=== PATIENT | male | born 1950 | race Caucasian/White ===

== ENCOUNTER 2020-10-26 19:23 | Inpatient (IN) | payer BC, OTHER ==
[2020-10-26] MEDS ORDERED: SODIUM CHLORIDE 2,041 ML IV ONE (19:45)
[2020-10-26] MEDS ORDERED: ACETAMINOPHEN 1000 MG/100 ML VIAL (NON FORMULARY) IVPB ONE (21:23)
[2020-10-26] MEDS ORDERED: ACETAMINOPHEN INJECTION 100 ML IVPB ONE (21:29)
[2020-10-26 21:33] LABS: BASO % 0.1 % (0-2.0); EOS % 0.1 % (0-4.5); HEMATOCRIT 28.9 % (35.4-49); HEMOGLOBIN 9.7 GM/dL (11.7-16.9); LYMPH % 18.5 % (8-40); MCH 29.9 pg (25.7-33.7); MCHC 33.6 g/dl (32.0-35.9); MEAN CELL VOLUME 88.8 fl (80-96); MEAN PLT VOLUME 9.6 fl (7.5-11.1); MONO % 8.2 % (3.8-10.2); NEUT % 73.1 % (42.8-82.8); PLATELET COUNT 161 10^3/uL (134-434); RBC 3.26 M/mm3 (4.00-5.60); RDW 15.9 % (11.9-15.9); WHITE BLOOD COUNT 6.6 K/mm3 (4.0-10.0)
[2020-10-26 21:42] LABS: INR 1.85 (0.83-1.09)
[2020-10-26 21:44] LABS: ACTIVATED PTT 37.5 SECONDS (25.2-36.5)
[2020-10-26 21:52] LABS: CHLORIDE 106 mmol/L (98-107); SODIUM 138 mmol/L (136-145)
[2020-10-26 21:53] LABS: CALCIUM 7.6 mg/dL (8.5-10.1)
[2020-10-26 21:54] LABS: ALBUMIN 2.7 g/dl (3.4-5.0); ANION GAP 8 MMOL/L (8-16); BLOOD UREA NITROGEN 18.9 mg/dL (7-18); CO2 24 mmol/L (21-32); GLUCOSE,RANDOM 94 mg/dL (74-106)
[2020-10-26 21:57] LABS: CREATININE 0.9 mg/dL (0.55-1.3); SGOT/AST 10 U/L (15-37); SGPT/ALT 19 U/L (13-61)
[2020-10-26 21:59] LABS: BILIRUBIN,TOTAL 0.9 mg/dL (0.2-1); TOT PROT 6.8 g/dl (6.4-8.2)
[2020-10-26 22:00] LABS: ALK PHOS 64 U/L (45-117)
[2020-10-27 00:36] LABS: EPI CELLS 3 /uL (0-25.1); HYALINE CASTS 1 /uL (0-3.1); PH,URINE 5.5 (5.0-8.0); URINE APPEARANCE CLOUDY; URINE BACTERIA >9,000 /uL (0-1359); URINE BILIRUBIN NEGATIVE (NEGATIVE); URINE COLOR YELLOW; URINE GLUCOSE (UA) NEGATIVE (NEGATIVE); URINE KETONE NEGATIVE (NEGATIVE); URINE LEUK ESTERASE 2+ (NEGATIVE); URINE NITRITE NEGATIVE (NEGATIVE); URINE PROTEIN 1+ (NEGATIVE); URINE RBC 32 /uL (0-23.9); URINE WBC 1108 /uL (0-25.8)
[2020-10-27] MEDS ORDERED: ACETAMINOPHEN 325 MG TABLET (FP) PO PRN (04:22)
[2020-10-27] MEDS ORDERED: SODIUM CHLORIDE 1,000 ML IV SCH ×2 (04:30→10:00)
[2020-10-27] MEDS ORDERED: KCL 10 MEQ IVPB 10 MEQ/100 ML INFUS.BAG IVPB SCH (06:30)
[2020-10-27] MEDS ORDERED: PIPERACILLIN/TAZOBACTAM 3.375 GM VIAL IVPB ONE ×3 (07:00→17:02)
[2020-10-27] MEDS ORDERED: DEXTROSE 5%-WATER - 50 ML IVPB ONE ×3 (07:01→17:02)
[2020-10-27 07:26] LABS: BASO % 0.2 % (0-2.0); EOS % 0.3 % (0-4.5); HEMATOCRIT 30.9 % (35.4-49); HEMOGLOBIN 10.2 GM/dL (11.7-16.9); LYMPH % 15.6 % (8-40); MCH 29.4 pg (25.7-33.7); MEAN CELL VOLUME 89.1 fl (80-96); MEAN PLT VOLUME 10.1 fl (7.5-11.1); MONO % 7.5 % (3.8-10.2); NEUT % 76.4 % (42.8-82.8); PLATELET COUNT 158 10^3/uL (134-434); RBC 3.47 M/mm3 (4.00-5.60); RDW 16.2 % (11.9-15.9); RETICULOCYTES 0.68 % (0.5-1.5); WHITE BLOOD COUNT 4.9 K/mm3 (4.0-10.0)
[2020-10-27 07:33] LABS: CHLORIDE 112 mmol/L (98-107); SODIUM 143 mmol/L (136-145)
[2020-10-27 07:35] LABS: ANION GAP 6 MMOL/L (8-16); BLOOD UREA NITROGEN 16.3 mg/dL (7-18); CALCIUM 7.4 mg/dL (8.5-10.1); CO2 25 mmol/L (21-32)
[2020-10-27 07:36] LABS: GLUCOSE,RANDOM 99 mg/dL (74-106); MAGNESIUM 2.1 mg/dL (1.8-2.4)
[2020-10-27 07:39] LABS: CREATININE 0.8 mg/dL (0.55-1.3); PHOSPHOROUS 2.9 mg/dL (2.5-4.9)
[2020-10-27] MEDS: PIPERACILLIN/TAZOB 3.375 GM 3.375 GM in DEXTROSE 5%-WATER - 50 ML IVPB SCH ×3 (08:43→18:05)
[2020-10-27] MEDS: TAMSULOSIN HCL 0.4 MG CAP PO SCH (09:36)
[2020-10-27] MEDS: APIXABAN 5 MG TABLET PO SCH ×2 (09:36→22:03)
[2020-10-27] MEDS ORDERED: SACUBITRIL/VALSARTAN 24 MG-26 MG TABLET PO SCH ×2 (10:00→10:30)
[2020-10-27] MEDS ORDERED: ENOXAPARIN NA (PORCINE) 40 MG/0.4 ML DISP.SYRIN SQ SCH (10:00)
[2020-10-27] MEDS ORDERED: PT OWN MED DRAWER 7, Y5N ONE (13:03)
[2020-10-27] MEDS ORDERED: METOPROLOL TARTRATE 5 MG/5 ML VIAL IVPUSH PRN (15:21)
[2020-10-27] MEDS: DEXTROSE 5%-NORMAL SALINE 1,000 ML IV SCH (18:54)
[2020-10-27] MEDS: DOCUSATE SODIUM 100 MG CAPSULE (FP) PO PRN (18:55)
[2020-10-27] MEDS: ROSUVASTATIN CA 20 MG TABLET (FP) PO SCH (22:02)
[2020-10-28] MEDS ORDERED: PIPERACILLIN/TAZOB 3.375 GM 3.375 GM in DEXTROSE 5%-WATER - 50 ML IVPB SCH (02:00)
[2020-10-28] MEDS ORDERED: PIPERACILLIN/TAZOBACTAM 3.375 GM VIAL IVPB ONE ×3 (02:59→17:07)
[2020-10-28] MEDS ORDERED: DEXTROSE 5%-WATER - 50 ML IVPB ONE ×3 (03:00→17:07)
[2020-10-28] MEDS: PIPERACILLIN/TAZOB 3.375 GM 3.375 GM in DEXTROSE 5%-WATER - 50 ML IVPB SCH ×3 (03:16→17:11)
[2020-10-28 08:29] LABS: HEMATOCRIT 28.2 % (35.4-49); HEMOGLOBIN 9.4 GM/dL (11.7-16.9); MCH 29.6 pg (25.7-33.7); MCHC 33.2 g/dl (32.0-35.9); MEAN CELL VOLUME 89.1 fl (80-96); MEAN PLT VOLUME 10.1 fl (7.5-11.1); PLATELET COUNT 165 10^3/uL (134-434); RBC 3.16 M/mm3 (4.00-5.60); RDW 16.5 % (11.9-15.9); WHITE BLOOD COUNT 4.1 K/mm3 (4.0-10.0)
[2020-10-28 08:56] LABS: CALCIUM 7.8 mg/dL (8.5-10.1)
[2020-10-28 08:57] LABS: ALBUMIN 2.3 g/dl (3.4-5.0); BLOOD UREA NITROGEN 12.6 mg/dL (7-18)
[2020-10-28 09:00] LABS: CREATININE 0.9 mg/dL (0.55-1.3)
[2020-10-28 09:01] LABS: BILIRUBIN,TOTAL 0.6 mg/dL (0.2-1)
[2020-10-28] MEDS: APIXABAN 5 MG TABLET PO SCH ×2 (09:21→22:07)
[2020-10-28] MEDS: TAMSULOSIN HCL 0.4 MG CAP PO SCH (09:21)
[2020-10-28] MEDS: DEXTROSE 5%-NORMAL SALINE 1,000 ML IV SCH (17:11)
[2020-10-28] MEDS: metoPROLOL SUCCINATE 25 MG TAB.SR.24H (FP) PO SCH (17:11)
[2020-10-28] MEDS: ROSUVASTATIN CA 20 MG TABLET (FP) PO SCH (22:07)
[2020-10-29] MEDS ORDERED: PIPERACILLIN/TAZOBACTAM 3.375 GM VIAL IVPB ONE ×2 (02:36→09:33)
[2020-10-29] MEDS ORDERED: DEXTROSE 5%-WATER - 50 ML IVPB ONE ×2 (02:37→09:33)
[2020-10-29] MEDS: PIPERACILLIN/TAZOB 3.375 GM 3.375 GM in DEXTROSE 5%-WATER - 50 ML IVPB SCH ×2 (02:40→11:03)
[2020-10-29 09:19] LABS: HEMATOCRIT 29.3 % (35.4-49); HEMOGLOBIN 9.6 GM/dL (11.7-16.9); MCH 29.4 pg (25.7-33.7); MCHC 32.8 g/dl (32.0-35.9); MEAN CELL VOLUME 89.6 fl (80-96); MEAN PLT VOLUME 9.8 fl (7.5-11.1); PLATELET COUNT 181 10^3/uL (134-434); RBC 3.27 M/mm3 (4.00-5.60); RDW 16.2 % (11.9-15.9); WHITE BLOOD COUNT 3.2 K/mm3 (4.0-10.0)
[2020-10-29 09:48] LABS: ALBUMIN 2.4 g/dl (3.4-5.0)
[2020-10-29 09:51] LABS: BILIRUBIN,TOTAL 0.5 mg/dL (0.2-1); CREATININE 0.8 mg/dL (0.55-1.3)
[2020-10-29 09:52] LABS: TOT PROT 6.2 g/dl (6.4-8.2)
[2020-10-29 09:53] LABS: CALCIUM 7.7 mg/dL (8.5-10.1)
[2020-10-29 09:54] LABS: BLOOD UREA NITROGEN 9.2 mg/dL (7-18); MAGNESIUM 2.1 mg/dL (1.8-2.4)
[2020-10-29 09:57] LABS: PHOSPHOROUS 3.4 mg/dL (2.5-4.9)
[2020-10-29] MEDS: APIXABAN 5 MG TABLET PO SCH ×2 (11:02→22:19)
[2020-10-29] MEDS: TAMSULOSIN HCL 0.4 MG CAP PO SCH (11:03)
[2020-10-29] MEDS: metoPROLOL SUCCINATE 25 MG TAB.SR.24H (FP) PO SCH (11:03)
[2020-10-29] MEDS: DOCUSATE SODIUM 100 MG CAPSULE (FP) PO PRN (11:03)
[2020-10-29] MEDS ORDERED: CEFTRIAXONE 2 GM in DEXTROSE 5%-WATER 2 GM/100 ML BAG IVPB SCH (13:45)
[2020-10-29 16:46] VITALS: BMI 20.2
[2020-10-29] MEDS ORDERED: DEXTROSE 5%-WATER 100 ML IVPB ONE (16:59)
[2020-10-29] MEDS: DEXTROSE 5%-NORMAL SALINE 1,000 ML IV SCH (17:02)
[2020-10-29] MEDS: CEFTRIAXONE 2 GM in DEXTROSE 5%-WATER 2 GM/100 ML BAG IVPB SCH (17:02)
[2020-10-29] MEDS: ROSUVASTATIN CA 20 MG TABLET (FP) PO SCH (22:19)
[2020-10-30 07:13] VITALS: BP 105/64; PULSE 70; TEMP 97.4
[2020-10-30 08:01] LABS: HEMATOCRIT 27.2 % (35.4-49); HEMOGLOBIN 9.2 GM/dL (11.7-16.9); MCH 29.8 pg (25.7-33.7); MCHC 33.8 g/dl (32.0-35.9); MEAN CELL VOLUME 88.1 fl (80-96); MEAN PLT VOLUME 9.8 fl (7.5-11.1); PLATELET COUNT 188 10^3/uL (134-434); RBC 3.08 M/mm3 (4.00-5.60); RDW 16.2 % (11.9-15.9); WHITE BLOOD COUNT 3.2 K/mm3 (4.0-10.0)
[2020-10-30 08:23] LABS: ALBUMIN 2.2 g/dl (3.4-5.0); BLOOD UREA NITROGEN 10.1 mg/dL (7-18); CALCIUM 7.4 mg/dL (8.5-10.1); MAGNESIUM 2.1 mg/dL (1.8-2.4)
[2020-10-30 08:26] LABS: CREATININE 0.7 mg/dL (0.55-1.3); PHOSPHOROUS 3.2 mg/dL (2.5-4.9)
[2020-10-30 08:28] LABS: BILIRUBIN,TOTAL 0.4 mg/dL (0.2-1); TOT PROT 6.1 g/dl (6.4-8.2)
[2020-10-30] MEDS ORDERED: DEXTROSE 5%-WATER 100 ML IVPB ONE (09:19)
[2020-10-30] MEDS: metoPROLOL SUCCINATE 25 MG TAB.SR.24H (FP) PO SCH (09:43)
[2020-10-30] MEDS: CEFTRIAXONE 2 GM in DEXTROSE 5%-WATER 2 GM/100 ML BAG IVPB SCH (09:43)
[2020-10-30] MEDS: TAMSULOSIN HCL 0.4 MG CAP PO SCH (09:43)
[2020-10-30] MEDS: APIXABAN 5 MG TABLET PO SCH (09:43)
[2020-10-30] MEDS: DOCUSATE SODIUM 100 MG CAPSULE (FP) PO PRN (09:43)
== END 2020-10-30 16:00 | disposition home or self-care (01) | DRG 872 ==
LOC: JER 19:23 → JERBED 10-27 01:33 → J7W 10-27 04:28
PROVIDERS: ADMIT Hospitalist; ATTEND Internal Medicine
PROC: 05HB33Z Insertion of Infusion Device into Right Basilic Vein, Percutaneous Approach (ICD-10-PCS; principal; 2020-10-30)
PROC: B54MZZA Ultrasonography of Right Upper Extremity Veins, Guidance (ICD-10-PCS; 2020-10-30)
DX: A41.9 Sepsis, unspecified organism (principal); N39.0 Urinary tract infection, site not specified; I50.22 Chronic systolic (congestive) heart failure; I25.10 Atherosclerotic heart disease of native coronary artery without angina pectoris; I25.5 Ischemic cardiomyopathy; I48.91 Unspecified atrial fibrillation; Z79.01 Long term (current) use of anticoagulants; E03.9 Hypothyroidism, unspecified; E78.5 Hyperlipidemia, unspecified; E86.1 Hypovolemia; D64.9 Anemia, unspecified; R55 Syncope and collapse; E87.6 Hypokalemia; Z95.1 Presence of aortocoronary bypass graft; N40.0 Benign prostatic hyperplasia without lower urinary tract symptoms; E88.09 Other disorders of plasma-protein metabolism, not elsewhere classified
CPT/HCPCS: 36415; 36569; 70450-TC; 71045-TC-FY; 76775-TC; 76856-TC; 80048; 80053; 81003; 82607; 82728; 82747; 82962; 83540; 83550; 83605; 83735; 83880; 84100; 84439; 84443; 84484; 85014; 85025; 85027; 85045; 85610; 85730; 86850; 86900; 86901; 87040; 87086; 87186; 93005; 93010; 99285-25; C9803; J0131; U0003; U0005

== ENCOUNTER 2022-08-18 08:30 | Inpatient (IN) | payer OTHER, BC ==
[2022-08-18 09:50] LABS: HEMATOCRIT 33.8 % (35.4-49); HEMOGLOBIN 11.4 GM/dL (11.7-16.9); MCH 29.9 pg (25.7-33.7); MCHC 33.6 g/dl (32.0-35.9); MEAN CELL VOLUME 88.9 fl (80-96); MEAN PLT VOLUME 9.1 fl (7.5-11.1); PLATELET COUNT 159 10^3/uL (134-434); RDW 17.7 % (11.9-15.9); WHITE BLOOD COUNT 6.2 K/mm3 (4.0-10.0)
[2022-08-18 10:17] LABS: POTASSIUM 3.2 mmol/L (3.5-5.1)
[2022-08-18 10:19] LABS: CALCIUM 7.8 mg/dL (8.5-10.1)
[2022-08-18 10:20] LABS: ANISOCYTOSIS 0; BLOOD UREA NITROGEN 33.3 mg/dL (7-18); HELMET CELLS 0; HOWELL-JOLLY BODIES 0; MACROCYTOSIS 0; OVALOCYTE 0; ROULEAU 0; SICKELED CELLS 0; TARGET CELLS 0; TEAR DROP CELLS 0; TOXIC GRANULATION 0
[2022-08-18 10:22] LABS: CREATININE 0.6 mg/dL (0.55-1.3)
[2022-08-18 10:23] LABS: BILIRUBIN,TOTAL 1.4 mg/dL (0.2-1)
[2022-08-18 10:25] LABS: TOT PROT 7.6 g/dl (6.4-8.2)
[2022-08-18] MEDS ORDERED: POTASSIUM CHLORIDE ORAL LIQUID 20 MEQ/15 ML PO ONE (11:33)
[2022-08-18] MEDS ORDERED: HALOPERIDOL LACTATE 5 MG/ML IM PRN (12:12)
[2022-08-18] MEDS ORDERED: metoPROLOL SUCCINATE 25 MG TAB.SR.24H (FP) PO ONE (13:32)
[2022-08-18] MEDS ORDERED: POTASSIUM CHLORIDE ORAL LIQUID 20 MEQ/15 ML ONE (13:32)
[2022-08-18] MEDS: metoPROLOL SUCCINATE 25 MG TAB.SR.24H (FP) PO SCH (13:50)
[2022-08-18] MEDS ORDERED: HALOPERIDOL LACTATE 5 MG/ML IM ONE (16:27)
[2022-08-18 19:16] VITALS: BMI 18.1
[2022-08-18] MEDS: ARIPiprazole 2 MG TABLET PO SCH (22:07)
[2022-08-18] MEDS: APIXABAN 5 MG TABLET PO SCH (22:07)
[2022-08-18] MEDS: ATORVASTATIN CA 80 MG TABLET (FP) PO SCH (22:07)
[2022-08-19 07:26] LABS: POTASSIUM 3.7 mmol/L (3.5-5.1)
[2022-08-19 07:30] LABS: BLOOD UREA NITROGEN 35.9 mg/dL (7-18); CALCIUM 7.4 mg/dL (8.5-10.1)
[2022-08-19 07:33] LABS: CREATININE 0.5 mg/dL (0.55-1.3)
[2022-08-19] MEDS ORDERED: TAMSULOSIN HCL 0.4 MG CAP PO SCH (08:30)
[2022-08-19] MEDS ORDERED: LISINOPRIL 5 MG TABLET PO SCH (10:00)
[2022-08-19] MEDS ORDERED: GABAPENTIN 100 MG CAPSULE PO SCH (10:00)
[2022-08-19] MEDS: SPIRONOLACTONE 25 MG TABLET PO SCH (10:08)
[2022-08-19] MEDS: metoPROLOL SUCCINATE 25 MG TAB.SR.24H (FP) PO SCH (10:08)
[2022-08-19] MEDS: FOLIC ACID 1 MG TABLET (FP) PO SCH (10:10)
[2022-08-19] MEDS: APIXABAN 5 MG TABLET PO SCH ×2 (10:10→21:51)
[2022-08-19] MEDS: MEMANTINE HCL 5 MG TABLET (UD) PO SCH (10:10)
[2022-08-19] MEDS: D5-1/2NS+20 MEQ KCL - 20 MEQ/1,000 ML INFUS.BAG IV SCH (10:47)
[2022-08-19] MEDS: NYSTATIN POWDER 100,000 UNITS/GM - 15 GM TOPICAL POWDER TP SCH ×2 (16:53→21:51)
[2022-08-19] MEDS: ATORVASTATIN CA 80 MG TABLET (FP) PO SCH (21:51)
[2022-08-19] MEDS: ARIPiprazole 2 MG TABLET PO SCH (21:51)
[2022-08-20 07:09] LABS: HEMATOCRIT 30.8 % (35.4-49); HEMOGLOBIN 10.6 GM/dL (11.7-16.9); MCH 30.2 pg (25.7-33.7); MCHC 34.5 g/dl (32.0-35.9); MEAN CELL VOLUME 87.5 fl (80-96); MEAN PLT VOLUME 9.8 fl (7.5-11.1); PLATELET COUNT 162 10^3/uL (134-434); RBC 3.52 M/mm3 (4.00-5.60); RDW 17.4 % (11.9-15.9); WHITE BLOOD COUNT 9.1 K/mm3 (4.0-10.0)
[2022-08-20 07:29] LABS: POTASSIUM 3.8 mmol/L (3.5-5.1)
[2022-08-20 07:35] LABS: CALCIUM 7.8 mg/dL (8.5-10.1)
[2022-08-20 07:36] LABS: BLOOD UREA NITROGEN 56.2 mg/dL (7-18)
[2022-08-20 07:40] LABS: CREATININE 1.2 mg/dL (0.55-1.3)
[2022-08-20 10:00] LABS: ANISOCYTOSIS 0; MACROCYTOSIS 0; OVALOCYTE 2+; TEAR DROP CELLS 1+
[2022-08-20] MEDS: SPIRONOLACTONE 25 MG TABLET PO SCH (11:01)
[2022-08-20] MEDS: MEMANTINE HCL 5 MG TABLET (UD) PO SCH (11:02)
[2022-08-20] MEDS: FOLIC ACID 1 MG TABLET (FP) PO SCH (11:02)
[2022-08-20] MEDS: APIXABAN 5 MG TABLET PO SCH ×2 (11:02→21:49)
[2022-08-20] MEDS: metoPROLOL SUCCINATE 25 MG TAB.SR.24H (FP) PO SCH (11:02)
[2022-08-20] MEDS: D5-1/2NS+20 MEQ KCL - 20 MEQ/1,000 ML INFUS.BAG IV SCH ×3 (11:04→15:11)
[2022-08-20] MEDS: NYSTATIN POWDER 100,000 UNITS/GM - 15 GM TOPICAL POWDER TP SCH ×2 (11:04→21:48)
[2022-08-20] MEDS ORDERED: IRON SUCROSE INJECTION 300 MG in SODIUM CHLORIDE 250 ML IVPB ONE (11:17)
[2022-08-20] MEDS: ATORVASTATIN CA 80 MG TABLET (FP) PO SCH (21:48)
[2022-08-20] MEDS: ARIPiprazole 2 MG TABLET PO SCH (21:48)
[2022-08-21] MEDS: D5-1/2NS+20 MEQ KCL - 20 MEQ/1,000 ML INFUS.BAG IV SCH ×2 (05:59→09:38)
[2022-08-21 07:09] LABS: BASO % 0.4 % (0-2.0); EOS % 0.6 % (0-4.5); HEMATOCRIT 28.8 % (35.4-49); HEMOGLOBIN 10.1 GM/dL (11.7-16.9); LYMPH % 46.1 % (8-40); MCH 31.1 pg (25.7-33.7); MEAN CELL VOLUME 88.7 fl (80-96); MEAN PLT VOLUME 9.6 fl (7.5-11.1); MONO % 5.6 % (3.8-10.2); NEUT % 47.3 % (42.8-82.8); PLATELET COUNT 153 10^3/uL (134-434); RBC 3.25 M/mm3 (4.00-5.60); RDW 17.6 % (11.9-15.9)
[2022-08-21 07:18] LABS: POTASSIUM 4.2 mmol/L (3.5-5.1)
[2022-08-21 07:19] LABS: CALCIUM 7.3 mg/dL (8.5-10.1)
[2022-08-21 07:20] LABS: BLOOD UREA NITROGEN 43.7 mg/dL (7-18)
[2022-08-21 07:23] LABS: CREATININE 0.8 mg/dL (0.55-1.3)
[2022-08-21 09:27] LABS: ANISOCYTOSIS 1+; MACROCYTOSIS 0
[2022-08-21] MEDS: metoPROLOL SUCCINATE 25 MG TAB.SR.24H (FP) PO SCH (09:35)
[2022-08-21] MEDS: SPIRONOLACTONE 25 MG TABLET PO SCH (09:35)
[2022-08-21] MEDS: MEMANTINE HCL 5 MG TABLET (UD) PO SCH (09:35)
[2022-08-21] MEDS: FOLIC ACID 1 MG TABLET (FP) PO SCH (09:36)
[2022-08-21] MEDS: APIXABAN 5 MG TABLET PO SCH (09:36)
[2022-08-21] MEDS: NYSTATIN POWDER 100,000 UNITS/GM - 15 GM TOPICAL POWDER TP SCH (09:38)
[2022-08-21] MEDS ORDERED: MULTIVITAMINS (DAILY MVI) TABLET (FP) PO SCH (10:00)
[2022-08-21] MEDS ORDERED: ASCORBIC ACID 500 MG TABLET (FP) PO SCH (10:00)
[2022-08-21 14:39] VITALS: BP 111/77; PULSE 98; RESP 18; TEMP 98.4
== END 2022-08-21 18:10 | DRG 57 ==
LOC: JER 08:30 → JERBED 11:42 → J7W 18:35
PROVIDERS: ADMIT Internal Medicine; ATTEND Internal Medicine
DX: G30.9 Alzheimer's disease, unspecified (principal); E44.0 Moderate protein-calorie malnutrition; R64 Cachexia; Z68.1 Body mass index [BMI] 19.9 or less, adult; F02.80 Dementia in other diseases classified elsewhere, unspecified severity, without behavioral disturbance, psychotic disturbance, mood disturbance, and anxiety; I50.9 Heart failure, unspecified; E03.9 Hypothyroidism, unspecified; I11.0 Hypertensive heart disease with heart failure; E78.5 Hyperlipidemia, unspecified; I25.10 Atherosclerotic heart disease of native coronary artery without angina pectoris; I48.91 Unspecified atrial fibrillation; R62.7 Adult failure to thrive; E87.6 Hypokalemia; E86.0 Dehydration; Z95.1 Presence of aortocoronary bypass graft; F41.8 Other specified anxiety disorders
CPT/HCPCS: 36415; 70450-TC; 71045-TC-FY; 72125-TC; 80048; 80053; 82550; 82728; 83540; 83550; 83735; 85025; 93005; 93010; 97116-GP; 97161-GP; 99285-25; C9803-CS; J1756; U0003; U0005